=== PATIENT | male | born 1965 | race Caucasian/White ===

== ENCOUNTER → 2016-11-21 | Outpatient (CLI) | payer BC | END | disposition home or self-care (01) | LOC: C.LAB1850 07:06 | PROVIDERS: ATTEND Family Medicine | DX: Z12.5 Encounter for screening for malignant neoplasm of prostate (principal) ==

== ENCOUNTER 2022-04-12 21:11 | Observation (INO) ==
[2022-04-12] MEDS ORDERED: OPTIRAY 300 500mL IV ONE (21:30)
--- NOTE | 2022-04-12 21:55 | CT Scan Report ---
CT angio neck with con, CT head/brain wo con, CT angio head w con CLINICAL HISTORY: stroke TECHNIQUE: Contiguous axial CT images of the head were acquired from the base of the skull to the adama jason without intravenous contrast administration. CT angiography of the head and neck was performed f ollowing intravenous administration of iodinated contrast. Coronal and sagittal MIPS were obtained fr om the axial data set and were submitted for review. Automated dose lowering techniques and/or adjus tment according to patient size were utilized for this examination. All measurements were calculated based on NASCET criteria. CT DOSE: 1323.91 mGy.cm Comparison: Comparison is made to brain MRI 12/25/2021 FINDINGS: CT head: There is no acute intracranial hemorrhage or evidence of acute territorial infarction. No sh ift of the midline structures, mass effect, or extra-axial abnormalities are shown. There is biapical scarring and an azygos fissure is noted. Tiny hypodense thyroid nodule is seen. CTA Neck: A 3 vessel aortic arch is shown. There is no significant atherosclerotic plaque in the aor tic arch or the origins of the innominate, left common carotid, and left subclavian arteries. The c ommon carotid, external carotid, cervical segments of the internal carotid arteries, and the cervical segments of the vertebral arteries are patent without hemodynamically significant stenosis. The vert ebral arteries are codominant. CTA Head: The anterior and posterior cerebral circulations are patent. No hemodynamically significan t stenosis, aneurysm, dissection, or arteriovenous malformation is shown. origin of the left po sterior cerebral artery is seen. IMPRESSION: 1. No acute intracranial hemorrhage, evidence of acute territorial infarction, or other acute intrac ranial disease process. 2. No occlusion, hemodynamically significant stenosis, or dissection in the major cervical arteries. 3. No occlusion, hemodynamically significant stenosis, aneurysm, dissection, or arteriovenous malfor mation in the major intracranial arteries. Assessment of stenosis of the internal carotid arteries is based on NASCET criteria. ACT 112: Negative or not required by law. Electronically signed by: Eric Mcrae M.D. 04/12/2022 9:53 PM
[2022-04-12 21:56] LABS: iSTAT Creatinine 0.7 mg/dl (0.6-1.3); iSTAT Hemoglobin 12.2 g/dl (14.0-18.0); iSTAT Ionized Calcium 1.13 mmol/l (1.12-1.32); iSTAT Potassium 3.4 mmol/L (3.3-5.0)
[2022-04-12 22:01] LABS: Hematocrit (blood only) 36.1 % (40.1-51.0); Hemoglobin 12.1 g/dl (14.0-18.0); Mean Corpuscular Hemoglobin 27.8 pg (25.0-34.0); Mean Corpuscular Hgb Conc 33.5 g/dL (32.0-36.0); Platelet Count 184 K/uL (130-400); RDW Coefficient of Variation 12.4 % (11.5-14.5); RDW Standard Deviation 37.5 fL (36.4-46.3); Red Blood Count 4.35 M/uL (4.63-6.08); White Blood Count 7.91 K/ul (4.8-10.8)
--- NOTE | 2022-04-12 22:17 | Emergency Department Note ---
Impression & Plan Stroke-like symptoms ED Provider Note INFORMANT: Patient and ED PROVIDER(S): Piter Bonilla MD CHIEF COMPLAINT: Strokelike symptoms PLAN: Disposition: Admitted Condition: Good Outpatient prescription management: none Referral: None MEDICAL DECISION MAKING: Patient presented because of strokelike symptoms. He noted he was improving and near back to baseline but still has some very minimal residual symptoms. His episode had started about 12 hours ago. He is out of the window for IV TN K. He was made a stroke alert initially and taken emergently to CT imaging. This was negative for any acute process. I did discuss the need for further work-up in the hospital. Patient and were in agreement. Patient was hydrated and given aspirin. His ECG was unremarkable. He had a minimal anemia on CBC. Chemistry panel was unremarkable. Consultation was made with Dr. Vikas Singh of the [facility] service. Patient was evaluated in the ER for further management. Triage Nursing notes reviewed and agree them. Vital Signs: reviewed and remarkable for no significant abnormalities Differential diagnosis: CVA, TIA infection, dehydration, metabolic abnormality, hypo/hyperglycemia, electrolyte disturbance, anemia, hypoxia, cardiac sources, intracerebral event, toxicologic, neurologic, as well as other pathologies. Diagnostics interpreted by me: ECLead ECG rhythm sinus bradycardia [address] elevation or depression. No PACs or PVCs. Normal axis. Cardiac Monitoring: Cardiac monitoring ordered by me: The patient was placed on continuous cardiac monitoring and observed. It revealed a normal sinus rhythm at 60 beats per minute without ectopy or evidence of dysrhythmia. Imaging studies: And CT angiography of the head and neck are negative for acute process. HPI: The patient is a 57year old male who presents to the Emergency Room with complaints of stroke symptoms. This started around 8 AM today and is now nearly resolved. The patient also notes the following associated symptoms, feeling off balance throughout the day, right facial droop, left leg decreased sensation. states that she noticed around 8 PM this evening that his speech was slurred and his right face was drooping. Currently his speech is normal and the facial droop is still minimally present. He feels like his leg is nearly back to normal. The patient has taken no medication for relieving factors. Current pain is rated as 0/10. Patient also notes that he has been losing weight this year. No etiology was noted. Pt denies LOC, headache, fevers, chills, diaphoresis, visual changes, neck pain, chest pain, breathing difficulties, nausea, vomiting, abdominal pain, back pain, melena, hematochezia, urinary symptoms, numbness, weakness, lymphadenopathy, rash, or other complaints. ROS: See above HPI for pertinent positives & negatives. A total of 10 systems reviewed and were otherwise negative. PAST MEDICAL HISTORY:See Below , gastroparesis PAST SURGICAL HISTORY:See Below, FAMILY HISTORY:See Below SOCIAL HISTORY:See Below, HOME MEDICATIONS:See Below ALLERGIES:See Below VITALS:See Below PHYSICAL EXAMINATION: GENERAL: Awake, alert, well-appearing, in no distress HENT: Normocephalic, atraumatic. Oropharynx unremarkable. EYES: Normal conjunctiva. Sclera non-icteric. PERRLA. EOMI. NECK: Inspection normal. Non-tender. Supple. No nuchal rigidity. FROM. No masses. RESPIRATORY: Clear to auscultation. No wheezes. No rales. Normal respiratory effort. CARDIAC: Normal rate. Normal rhythm. No murmurs. No rubs. Extremities warm and well perfused. Pulses equal. No JVD. GI: Soft, non-distended. No tenderness to palpation. No rebound or guarding. No masses. RECTAL: Deferred. MUSCULOSKELETAL: Atraumatic. Chest examination reveals no tenderness. The back is symmetrical on inspection without obvious abnormality. There is no CVA tenderness to palpation. No joint edema. LOWER EXTREMITIES: Calves are equal size bilaterally and non-tender. No edema. No discoloration. NEURO: Normal sensorium. No sensory or motor deficits noted. Subtle right facial droop noted otherwise cranial nerves II through XII intact subtle weakness of the right leg with lifting off the bed, very slight. SKIN: No rash or jaundice noted. Piter Bonilla MD Past Med/Surg History Medical History Anxiety and depression BPH (benign prostatic hyperplasia) Chronic obstructive pulmonary disease History of colon polyps History of COVID-19 History of TMJ disorder Hx of Lyme disease Osteoarthritis Positive cardiac stress test Raynaud's disease Sleep apnea Surgical History H/O inguinal hernia repair History of cardiac cath History of colonoscopy History of tooth extraction S/P anal fissurectomy S/P hernia surgery Family History Father Lung cancer Mother Scleroderma Myocardial infarction Other No family history of adverse response to anesthesia Denies family history of Ovarian cancer Prostate cancer Breast cancer Colorectal cancer Social History Smoking Status: Never smoker Second Hand Exposure: Yes (as a child); Hx Alcohol Use: No Hx Substance Use: No Preferred Language: Slovak Communication Ability: Effective Visual Impairment: No Limitations Hearing Ability: Normal Passenger Service Agent Required: No Beliefs That Will Affect Care: None marital status: Current Living Situation: Family Current Living Situation Comment: , FATHER N LAW, DAUGHTERS, AND STEP SON current occupational status: employed current occupation: [employer] Feels Safe at Home: Yes Childhood Exposure to Second-Hand Smoke: Yes Dental Care, Regularly: Yes Physical Activity Frequency: 1-2 Times per Week Seatbelt Use: always Sunscreen Use: Yes Assistive Devices: Glasses Allergies Allergies Allergy/AdvReac Type Severity Reaction Status Date / Time oxycodone [From Percocet] Allergy Intermediate ITCHING Verified 01/30/22 17:59 Home Meds Home Medications Medication Instructions Recorded Confirmed cholecalciferol (vitamin D3) 25 4,000 unit PO DAILY 10/31/21 04/12/22 mcg (1,000 unit) capsule Previous Rx's Medication Instructions Recorded sildenafil 100 mg tablet (Viagra) See Rx Instructions PO DAILY PRN 12/04/20 sexual activity #30 tabs fluvoxamine 100 mg tablet 100 mg PO HS #90 tabs 12/26/21 pantoprazole 40 mg tablet,delayed 40 mg PO DAILY #30 tabs 02/21/22 release (Protonix) Results & Data (ED) Vital Signs Vital Signs - 24 hr 04/12/22 21:14 04/12/22 21:36 04/12/22 21:38 Temperature 36.2 C L 37.1 C Temperature Source Temporal Artery Scan Oral Pulse Rate 61 Pulse Rate [Apical] Pulse Rate [Finger] 61 Pulse Rate from SpO2 Sensor Pulse Rhythm Pulse Rhythm [Apical] Pulse Strength [Apical] Respiratory Rate 18 18 Respiratory Effort / Characteristics Non-Labored Spontaneous Non-Labored Spontaneous Respiratory Depth Normal Normal Respiratory Pattern Blood Pressure 154/88 H Blood Pressure [Right Arm] 148/99 H Blood Pressure Mean 110 Blood Pressure Mean [Right Arm] 115 Blood Pressure Position [Right Arm] Lying Pulse Oximetry 98 97 100 Oxygen Delivery Method Room Air Room Air Room Air Oxygen Flow Rate 0 Sepsis Recent Fever Within 48 Hours No Sepsis New/Unexplained Change in Mental Status No Sepsis Action Taken by Nursing No Action Required 04/12/22 21:43 04/12/22 23:00 04/12/22 21:35 Temperature Temperature Source Pulse Rate 57 L 60 Pulse Rate [Apical] 54 L Pulse Rate [Finger] Pulse Rate from SpO2 Sensor Pulse Rhythm Regular Pulse Rhythm [Apical] Regular Pulse Strength [Apical] Normal Respiratory Rate 15 16 9 L Respiratory Effort / Characteristics Non-Labored Respiratory Depth Normal Respiratory Pattern Regular Blood Pressure Blood Pressure [Right Arm] 145/87 H Blood Pressure Mean Blood Pressure Mean [Right Arm] 106 Blood Pressure Position [Right Arm] Lying Pulse Oximetry 98 96 Oxygen Delivery Method Room Air Room Air Oxygen Flow Rate Sepsis Recent Fever Within 48 Hours Sepsis New/Unexplained Change in Mental Status Sepsis Action Taken by Nursing 04/12/22 21:38 04/12/22 21:38 04/12/22 21:40 Temperature Temperature Source Pulse Rate 62 63 Pulse Rate [Apical] Pulse Rate [Finger] Pulse Rate from SpO2 Sensor 62 64 Pulse Rhythm Pulse Rhythm [Apical] Pulse Strength [Apical] Respiratory Rate 12 20 Respiratory Effort / Characteristics Respiratory Depth Respiratory Pattern Blood Pressure 148/99 H Blood Pressure [Right Arm] Blood Pressure Mean 115 Blood Pressure Mean [Right Arm] Blood Pressure Position [Right Arm] Pulse Oximetry 100 98 Oxygen Delivery Method Oxygen Flow Rate Sepsis Recent Fever Within 48 Hours Sepsis New/Unexplained Change in Mental Status Sepsis Action Taken by Nursing 04/12/22 21:50 04/12/22 22:00 04/12/22 22:00 Temperature Temperature Source Pulse Rate 61 56 L Pulse Rate [Apical] Pulse Rate [Finger] Pulse Rate from SpO2 Sensor 63 55 L Pulse Rhythm Pulse Rhythm [Apical] Pulse Strength [Apical] Respiratory Rate 15 11 L Respiratory Effort / Characteristics Respiratory Depth Respiratory Pattern Blood Pressure 138/96 Blood Pressure [Right Arm] Blood Pressure Mean 110 Blood Pressure Mean [Right Arm] Blood Pressure Position [Right Arm] Pulse Oximetry 98 97 Oxygen Delivery Method Oxygen Flow Rate Sepsis Recent Fever Within 48 Hours Sepsis New/Unexplained Change in Mental Status Sepsis Action Taken by Nursing 04/12/22 22:10 04/12/22 22:20 04/12/22 22:30 Temperature Temperature Source Pulse Rate 57 L 54 L Pulse Rate [Apical] Pulse Rate [Finger] Pulse Rate from SpO2 Sensor 59 L 55 L Pulse Rhythm Pulse Rhythm [Apical] Pulse Strength [Apical] Respiratory Rate 18 20 Respiratory Effort / Characteristics Respiratory Depth Respiratory Pattern Blood Pressure 139/80 Blood Pressure [Right Arm] Blood Pressure Mean 99 Blood Pressure Mean [Right Arm] Blood Pressure Position [Right Arm] Pulse Oximetry 97 97 Oxygen Delivery Method Oxygen Flow Rate Sepsis Recent Fever Within 48 Hours Sepsis New/Unexplained Change in Mental Status Sepsis Action Taken by Nursing 04/12/22 22:30 04/12/22 22:40 04/12/22 22:50 Temperature Temperature Source Pulse Rate 58 L 56 L 55 L Pulse Rate [Apical] Pulse Rate [Finger] Pulse Rate from SpO2 Sensor 56 L 56 L 56 L Pulse Rhythm Pulse Rhythm [Apical] Pulse Strength [Apical] Respiratory Rate 14 21 20 Respiratory Effort / Characteristics Respiratory Depth Respiratory Pattern Blood Pressure Blood Pressure [Right Arm] Blood Pressure Mean Blood Pressure Mean [Right Arm] Blood Pressure Position [Right Arm] Pulse Oximetry 97 96 97 Oxygen Delivery Method Oxygen Flow Rate Sepsis Recent Fever Within 48 Hours Sepsis New/Unexplained Change in Mental Status Sepsis Action Taken by Nursing 04/12/22 23:00 04/12/22 23:00 04/12/22 23:10 Temperature Temperature Source Pulse Rate 56 L 56 L Pulse Rate [Apical] Pulse Rate [Finger] Pulse Rate from SpO2 Sensor 56 L 55 L Pulse Rhythm Pulse Rhythm [Apical] Pulse Strength [Apical] Respiratory Rate 18 24 Respiratory Effort / Characteristics Respiratory Depth Respiratory Pattern Blood Pressure 145/87 H Blood Pressure [Right Arm] Blood Pressure Mean 106 Blood Pressure Mean [Right Arm] Blood Pressure Position [Right Arm] Pulse Oximetry 97 97 Oxygen Delivery Method Oxygen Flow Rate Sepsis Recent Fever Within 48 Hours Sepsis New/Unexplained Change in Mental Status Sepsis Action Taken by Nursing 04/12/22 23:20 04/12/22 23:30 04/12/22 23:30 Temperature Temperature Source Pulse Rate 56 L 55 L Pulse Rate [Apical] Pulse Rate [Finger] Pulse Rate from SpO2 Sensor 55 L 54 L Pulse Rhythm Pulse Rhythm [Apical] Pulse Strength [Apical] Respiratory Rate 17 18 Respiratory Effort / Characteristics Respiratory Depth Respiratory Pattern Blood Pressure 149/89 H Blood Pressure [Right Arm] Blood Pressure Mean 109 Blood Pressure Mean [Right Arm] Blood Pressure Position [Right Arm] Pulse Oximetry 99 97 Oxygen Delivery Method Oxygen Flow Rate Sepsis Recent Fever Within 48 Hours Sepsis New/Unexplained Change in Mental Status Sepsis Action Taken by Nursing 04/12/22 23:40 04/13/22 00:01 04/13/22 00:01 Temperature Temperature Source Pulse Rate 54 L 55 L Pulse Rate [Apical] Pulse Rate [Finger] Pulse Rate from SpO2 Sensor 55 L 54 L Pulse Rhythm Pulse Rhythm [Apical] Pulse Strength [Apical] Respiratory Rate 20 14 Respiratory Effort / Characteristics Respiratory Depth Respiratory Pattern Blood Pressure 140/84 Blood Pressure [Right Arm] Blood Pressure Mean 102 Blood Pressure Mean [Right Arm] Blood Pressure Position [Right Arm] Pulse Oximetry 98 99 Oxygen Delivery Method Oxygen Flow Rate Sepsis Recent Fever Within 48 Hours Sepsis New/Unexplained Change in Mental Status Sepsis Action Taken by Nursing 04/13/22 00:10 04/13/22 00:20 04/13/22 00:30 Temperature Temperature Source Pulse Rate 50 L 53 L Pulse Rate [Apical] Pulse Rate [Finger] Pulse Rate from SpO2 Sensor 51 L 53 L Pulse Rhythm Pulse Rhythm [Apical] Pulse Strength [Apical] Respiratory Rate 17 17 Respiratory Effort / Characteristics Respiratory Depth Respiratory Pattern Blood Pressure 131/87 Blood Pressure [Right Arm] Blood Pressure Mean 101 Blood Pressure Mean [Right Arm] Blood Pressure Position [Right Arm] Pulse Oximetry 97 97 Oxygen Delivery Method Oxygen Flow Rate Sepsis Recent Fever Within 48 Hours Sepsis New/Unexplained Change in Mental Status Sepsis Action Taken by Nursing 04/13/22 00:30 Temperature Temperature Source Pulse Rate 53 L Pulse Rate [Apical] Pulse Rate [Finger] Pulse Rate from SpO2 Sensor 55 L Pulse Rhythm Pulse Rhythm [Apical] Pulse Strength [Apical] Respiratory Rate 16 Respiratory Effort / Characteristics Respiratory Depth Respiratory Pattern Blood Pressure Blood Pressure [Right Arm] Blood Pressure Mean Blood Pressure Mean [Right Arm] Blood Pressure Position [Right Arm] Pulse Oximetry 98 Oxygen Delivery Method Oxygen Flow Rate Sepsis Recent Fever Within 48 Hours Sepsis New/Unexplained Change in Mental Status Sepsis Action Taken by Nursing Laboratory Data Result diagrams: 04/12/22 21:33 04/12/22 21:33 Lab Results 04/12/22 04/12/22 04/12/22 Range/Units 21:33 21:33 21:33 WBC 7.91 (4.8-10.8) K/ul RBC 4.35 L (4.63-6.08) M/uL Hgb 12.1 L (14.0-18.0) g/dl POC Hgb (14.0-18.0) g/dl Hct 36.1 L (40.1-51.0) % POC Hct (42-52) % MCV 83.0 (80.0-100.0) fL MCH 27.8 (25.0-34.0) pg MCHC 33.5 (32.0-36.0) g/dL RDW Std Deviation 37.5 (36.4-46.3) fL RDW Coeff of Marie 12.4 (11.5-14.5) % Plt Count 184 (130-400) K/uL MPV 10.0 (9.4-12.4) fL PT 12.1 H (9.0-12.0) Seconds INR 1.1 (0.9-1.1) APTT 29.3 (21.0-31.0) Seconds PTT Ratio 1.1 POC Sodium (135-144) mmol/L Sodium 136 (136-145) mmol/L POC Potassium (3.3-5.0) mmol/L Potassium 3.5 (3.5-5.1) mmol/L POC Chloride (101-112) mmol/L Chloride 105 (98-107) mmol/L Carbon Dioxide 27 (21-32) mmol/L POC Total CO2 (24-31) mmol/L Anion Gap 4 (3-11) POC Anion Gap (16-25) mmol/L POC BUN (7-18) mg/dl BUN 14 (6-23) mg/dl Creatinine 0.70 (0.6-1.4) mg/dl POC Creatinine (0.6-1.3) mg/dl Est Cr Clr Drug Dosing 120.2 ml/min Est GFR ( Amer) 121.4 ml/min Est GFR (Non-Af Amer) 104.8 ml/min BUN/Creatinine Ratio 20.0 (10-20) Glucose 112 H (70-99(Fasting)) mg/dl POC Glucose (70-99) mg/dl POC Glucose (other) (70-99) mg/dl Calcium 7.9 L (8.5-10.1) mg/dl POC Ioniz Calcium Chago (1.12-1.32) mmol/l Magnesium 1.9 (1.7-2.4) mg/dl Total Bilirubin 0.4 (0.2-1.0) mg/dl AST 12 L (13-39) U/L ALT 10 (7-52) U/L Alkaline Phosphatase 49 (34-104) U/L Troponin I High Sens 3.3 (0-20) pg/ml Total Protein 5.5 L (6.0-8.3) gm/dl Albumin 3.7 (3.4-5.0) gm/dl Globulin 1.8 L (2.5-4.0) gm/dl Albumin/Globulin Ratio 2.1 H (0.9-2) Anaplasma Smear Babesia Smear Lyme Disease IgG Ab (Negative) Lyme Disease IgM Ab (Negative) SARS-CoV-2, RNA, NAAT (NEGATIVE) 04/12/22 04/12/22 04/12/22 Range/Units 21:33 21:33 21:35 WBC (4.8-10.8) K/ul RBC (4.63-6.08) M/uL Hgb (14.0-18.0) g/dl POC Hgb (14.0-18.0) g/dl Hct (40.1-51.0) % POC Hct (42-52) % MCV (80.0-100.0) fL MCH (25.0-34.0) pg MCHC (32.0-36.0) g/dL RDW Std Deviation (36.4-46.3) fL RDW Coeff of Marie (11.5-14.5) % Plt Count (130-400) K/uL MPV (9.4-12.4) fL PT (9.0-12.0) Seconds INR (0.9-1.1) APTT (21.0-31.0) Seconds PTT Ratio POC Sodium (135-144) mmol/L Sodium (136-145) mmol/L POC Potassium (3.3-5.0) mmol/L Potassium (3.5-5.1) mmol/L POC Chloride (101-112) mmol/L Chloride (98-107) mmol/L Carbon Dioxide (21-32) mmol/L POC Total CO2 (24-31) mmol/L Anion Gap (3-11) POC Anion Gap (16-25) mmol/L POC BUN (7-18) mg/dl BUN (6-23) mg/dl Creatinine (0.6-1.4) mg/dl POC Creatinine (0.6-1.3) mg/dl Est Cr Clr Drug Dosing ml/min Est GFR ( Amer) ml/min Est GFR (Non-Af Amer) ml/min BUN/Creatinine Ratio (10-20) Glucose (70-99(Fasting)) mg/dl POC Glucose 62 L* (70-99) mg/dl POC Glucose (other) (70-99) mg/dl Calcium (8.5-10.1) mg/dl POC Ioniz Calcium Chago (1.12-1.32) mmol/l Magnesium (1.7-2.4) mg/dl Total Bilirubin (0.2-1.0) mg/dl AST (13-39) U/L ALT (7-52) U/L Alkaline Phosphatase (34-104) U/L Troponin I High Sens (0-20) pg/ml Total Protein (6.0-8.3) gm/dl Albumin (3.4-5.0) gm/dl Globulin (2.5-4.0) gm/dl Albumin/Globulin Ratio (0.9-2) Anaplasma Smear See Comment Babesia Smear See Comment Lyme Disease IgG Ab Negative (Negative) Lyme Disease IgM Ab Negative (Negative) SARS-CoV-2, RNA, NAAT (NEGATIVE) 04/12/22 04/12/22 Range/Units 21:44 21:59 WBC (4.8-10.8) K/ul RBC (4.63-6.08) M/uL Hgb (14.0-18.0) g/dl POC Hgb 12.2 L (14.0-18.0) g/dl Hct (40.1-51.0) % POC Hct 36 L (42-52) % MCV (80.0-100.0) fL MCH (25.0-34.0) pg MCHC (32.0-36.0) g/dL RDW Std Deviation (36.4-46.3) fL RDW Coeff of Marie (11.5-14.5) % Plt Count (130-400) K/uL MPV (9.4-12.4) fL PT (9.0-12.0) Seconds INR (0.9-1.1) APTT (21.0-31.0) Seconds PTT Ratio POC Sodium 139 (135-144) mmol/L Sodium (136-145) mmol/L POC Potassium 3.4 (3.3-5.0) mmol/L Potassium (3.5-5.1) mmol/L POC Chloride 101 (101-112) mmol/L Chloride (98-107) mmol/L Carbon Dioxide (21-32) mmol/L POC Total CO2 26 (24-31) mmol/L Anion Gap (3-11) POC Anion Gap 16.0 (16-25) mmol/L POC BUN 14 (7-18) mg/dl BUN (6-23) mg/dl Creatinine (0.6-1.4) mg/dl POC Creatinine 0.7 (0.6-1.3) mg/dl Est Cr Clr Drug Dosing ml/min Est GFR ( Amer) ml/min Est GFR (Non-Af Amer) ml/min BUN/Creatinine Ratio (10-20) Glucose (70-99(Fasting)) mg/dl POC Glucose (70-99) mg/dl POC Glucose (other) 116 H (70-99) mg/dl Calcium (8.5-10.1) mg/dl POC Ioniz Calcium Chago 1.13 (1.12-1.32) mmol/l Magnesium (1.7-2.4) mg/dl Total Bilirubin (0.2-1.0) mg/dl AST (13-39) U/L ALT (7-52) U/L Alkaline Phosphatase (34-104) U/L Troponin I High Sens (0-20) pg/ml Total Protein (6.0-8.3) gm/dl Albumin (3.4-5.0) gm/dl Globulin (2.5-4.0) gm/dl Albumin/Globulin Ratio (0.9-2) Anaplasma Smear Babesia Smear Lyme Disease IgG Ab (Negative) Lyme Disease IgM Ab (Negative) SARS-CoV-2, RNA, NAAT NEGATIVE (NEGATIVE) Administered Medications Potassium Chloride/Sodium Chloride (Normal Saline W/20 Meq Kcl) 20 meq in 1,000 mls @ 100 mls/hr IV .Q10H DOMONIQUE; Protocol Stop: 05/13/22 00:00 Last Admin: 04/13/22 00:30 Dose: 100 mls/hr Documented By: IRA Discontinued Medications Aspirin (Aspirin Chew 324 Mg) 324 mg PO NOW STA Stop: 04/12/22 22:44 Last Admin: 04/12/22 23:16 Dose: 324 mg Documented By: IRA Ioversol (Optiray 300 500ml) 120 ml IV ONCE ONE Stop: 04/12/22 21:31 Last Admin: 04/12/22 21:31 Dose: 120 ml Documented By: P Imaging Data Radiologist's Impression: Head CTA 04/12/22 21:22 CT angio neck with con, CT head/brain wo con, CT angio head w con CLINICAL HISTORY: stroke TECHNIQUE: Contiguous axial CT images of the head were acquired from the base of the skull to the vertex without intravenous contrast administration. CT angiography of the head and neck was performed following intravenous administration of iodinated contrast. Coronal and sagittal MIPS were obtained from the axial data set and were submitted for review. Automated dose lowering techniques and/or adjustment according to patient size were utilized for this examination. All measurements were calculated based on NASCET criteria. CT DOSE: 1323.91 mGy.cm Comparison: Comparison is made to brain MRI 12/25/2021 FINDINGS: CT head: There is no acute intracranial hemorrhage or evidence of acute territorial infarction. No shift of the midline structures, mass effect, or extra-axial abnormalities are shown. There is biapical scarring and an azygos fissure is noted. Tiny hypodense thyroid nodule is seen. CTA Neck: A 3 vessel aortic arch is shown. There is no significant atherosclerotic plaque in the aortic arch or the origins of the innominate, left common carotid, and left subclavian arteries. The common carotid, external carotid, cervical segments of the internal carotid arteries, and the cervical segments of the vertebral arteries are patent without hemodynamically significant stenosis. The vertebral arteries are codominant. CTA Head: The anterior and posterior cerebral circulations are patent. No hemodynamically significant stenosis, aneurysm, dissection, or arteriovenous malformation is shown. origin of the left posterior cerebral artery is seen. IMPRESSION: 1. No acute intracranial hemorrhage, evidence of acute territorial infarction, or other acute intracranial disease process. 2. No occlusion, hemodynamically significant stenosis, or dissection in the major cervical arteries. 3. No occlusion, hemodynamically significant stenosis, aneurysm, dissection, or arteriovenous malformation in the major intracranial arteries. Assessment of stenosis of the internal carotid arteries is based on NASCET criteria. ACT 112: Negative or not required by law. Electronically signed by: Eric Mcrae M.D. 04/12/2022 9:53 PM Neck CTA 04/12/22 21:22 CT angio neck with con, CT head/brain wo con, CT angio head w con CLINICAL HISTORY: stroke TECHNIQUE: Contiguous axial CT images of the head were acquired from the base of the skull to the vertex without intravenous contrast administration. CT angiography of the head and neck was performed following intravenous adm inistration of iodinated contrast. Coronal and sagittal MIPS were obtained from the axial data set and were submitted for review. Automated dose lowering techniques and/or adjustment according to patient size were utilized for this examination. All measurements were calculated based on NASCET criteria. CT DOSE: 1323.91 mGy.cm Comparison: Comparison is made to brain MRI 12/25/2021 FINDINGS: CT head: There is no acute intracranial hemorrhage or evidence of acute territorial infarction. No shift of the midline structures, mass effect, or extra-axial abnormalities are shown. There is biapical scarring and an azygos fissure is noted. Tiny hypodense thyroid nodule is seen. CTA Neck: A 3 vessel aortic arch is shown. There is no significant atherosclerotic plaque in the aortic arch or the origins of the innominate, left common carotid, and left subclavian arteries. The common carotid, external carotid, cervical segments of the internal carotid arteries, and the cervical segments of the vertebral arteries are patent without hemodynamically significant stenosis. The vertebral arteries are codominant. CTA Head: The anterior and posterior cerebral circulations are patent. No hemodynamically significant stenosis, aneurysm, dissection, or arteriovenous malformation is shown. origin of the left posterior cerebral artery is seen. IMPRESSION: 1. No acute intracranial hemorrhage, evidence of acute territorial infarction, or other acute intracranial disease process. 2. No occlusion, hemodynamically significant stenosis, or dissection in the major cervical arteries. 3. No occlusion, hemodynamically significant stenosis, aneurysm, dissection, or arteriovenous malformation in the major intracranial arteries. Assessment of stenosis of the internal carotid arteries is based on NASCET criteria. ACT 112: Negative or not required by law. Electronically signed by: Eric Mcrae M.D. 04/12/2022 9:[address] 04/12/22 21:25 CT angio neck with con, CT head/brain wo con, CT angio head w con CLINICAL HISTORY: stroke TECHNIQUE: Contiguous axial CT images of the head were acquired from the base of the skull to the vertex without intravenous contrast administration. CT angiography of the head and neck was performed following intravenous administration of iodinated contrast. Coronal and sagittal MIPS were obtained from the axial data set and were submitted for review. Automated dose lowering techniques and/or adjustment according to patient size were utilized for this examination. All measurements were calculated based on NASCET criteria. CT DOSE: 1323.91 mGy.cm Comparison: Comparison is made to brain MRI 12/25/2021 FINDINGS: CT head: There is no acute intracranial hemorrhage or evidence of acute territorial infarction. No shift of the midline structures, mass effect, or extra-axial abnormalities are shown. There is biapical scarring and an azygos fissure is noted. Tiny hypodense thyroid nodule is seen. CTA Neck: A 3 vessel aortic arch is shown. There is no significant atherosclerotic plaque in the aortic arch or the origins of the innominate, left common carotid, and left subclavian arteries. The common carotid, external carotid, cervical segments of the internal carotid arteries, and the cervical segments of the vertebral arteries are patent without hemodynamically significant stenosis. The vertebral arteries are codominant. CTA Head: The anterior and posterior cerebral circulations are patent. No hemodynamically significant stenosis, aneurysm, dissection, or arteriovenous malformation is shown. origin of the left posterior cerebral artery is seen. IMPRESSION: 1. No acute intracranial hemorrhage, evidence of acute territorial infarction, or other acute intracranial disease process. 2. No occlusion, hemodynamically significant stenosis, or dissection in the major cervical arteries. 3. No occlusion, hemodynamically significant stenosis, aneurysm, dissection, or arteriovenous malformation in the major intracranial arteries. Assessment of stenosis of the internal carotid arteries is based on NASCET criteria. ACT 112: Negative or not required by law. Electronically signed by: Eric Mcrae M.D. 04/12/2022 9:53 PM Discharge Plan Visit Data Chief Complaint: Stroke/CVA Symptoms Stated Complaint: SLURRED SPEECH, DROOPING IN FACE ED Provider: Piter Bonilla Discharge Problem: Stroke-like symptoms Forms Stand Alone Forms: [facility] Prescriptions Prescriptions: No Action sildenafil [Viagra] 100 mg tablet See Rx Instructions PO DAILY PRN (Reason: sexual activity) Qty: 30 5RF Dose Instruction: 1/2 to 1 tablet PO DAILY PRN; administer 30 minutes to 4 hours before activity Rx Instructions: 1/2 to 1 tablet PO DAILY PRN; administer 30 minutes to 4 hours before activity cholecalciferol (vitamin D3) 25 mcg (1,000 unit) capsule 4,000 unit PO DAILY fluvoxamine 100 mg tablet 100 mg PO HS Qty: 90 1RF pantoprazole [Protonix] 40 mg tablet,delayed release (DR/EC) 40 mg PO DAILY Qty: 30 2RF Referrals Referrals: Isi Paiz MD [Primary Care Provider] -
[2022-04-12 22:23] LABS: INR 1.1 (0.9-1.1); Partial Thromboplastin Ratio 1.1; Partial Thromboplastin Time 29.3 Seconds (21.0-31.0); Prothrombin Time 12.1 Seconds (9.0-12.0)
[2022-04-12] MEDS ORDERED: SODIUM CHLORIDE 0.9% 1000ML 1,000 ML IV STA (22:43)
[2022-04-12] MEDS ORDERED: ASPIRIN CHEW 324 MG PO STA (22:43)
[2022-04-12 22:44] LABS: Albumin Globulin Ratio 2.1 (0.9-2); Albumin Level 3.7 gm/dl (3.4-5.0); Bilirubin,Total 0.4 mg/dl (0.2-1.0); Calcium 7.9 mg/dl (8.5-10.1); Creatinine Clr Calc Pharmacy 120.2 ml/min; Est GFR (African American) 121.4 ml/min; Est GFR (Non-African American) 104.8 ml/min; Globulin 1.8 gm/dl (2.5-4.0); Magnesium 1.9 mg/dl (1.7-2.4); Potassium 3.5 mmol/L (3.5-5.1); Total Protein 5.5 gm/dl (6.0-8.3)
--- NOTE | 2022-04-12 23:20 | History & Physical Report ---
Date of Service April 12, 2022 Assessment & Plan (1) Weakness: Plan: The patient presents to the emergency department with with symptoms of the been intermittent over the past weeks, with possible mild acute worsening today. He has had a 35 pound weight loss since May 2021. He has undergone multiple assessments at [facility] rheumatologic center due to his symptom complex being most consistent with some form of connective tissue disease/autoimmune disease, and there was concern that he may be approaching a similar process that his mother had with scleroderma. Patient does have a history of gastroparesis, and has had significant issues with oral intake to liquids and solids during this time, likely contributing to his significant weight loss. I suspect his symptoms today are more related to a metabolic process as opposed to a TIA type process. There are concerns related to possible tickborne illness. He has a history of Lyme disease in the past. He has had a declining hemoglobin, and therefore testing related to babesiosis, anaplasmosis, early ketosis and Lyme disease are being undertaken In relation to his underlying family history of autoimmune disease, and some of his vague symptomatology, we will do arterial hypercoagulable work-up including the following: Cardiolipin antibody, lupus anticoagulant, homocystine, and beta- 2 microglobulin. He has undergone a cardiac catheterization in July of this year due to a str ess echocardiogram which showed possible endorgan ischemia toward recovery, level, cardiac catheterization reportedly was normal. Will order an echocardiogram to assess for possible endocarditis Admit to monitored bed overnight Order an MRI of the brain to assess for possible underlying neurologic disease such as MS (2) Gastroparesis: Plan: Continue pantoprazole (3) Unintentional weight loss: (4) Raynaud's disease: (5) Depression: Plan: Continue fluvoxamine (6) Mild obstructive sleep apnea: Plan: If requires, will use CPAP at nighttime, though does not use this at home. History of Present Illness Chief Complaint: The patient presented to the emergency department with variable symptoms of fatigue, variable symptoms of abnormal sensations in the legs, as noted by his and the patient, he reports an unintentional 35 pound weight loss since May 2021 Primary Care Provider: Isi Paiz MD The patient is a 57-year-old male with a past medical history including gastroparesis, weakness, Raynaud's disease, depression, mild JONO, weight loss, GERD and ongoing assessment for connective tissue disease due to mother's history of scleroderma. The patient presents with essentially resolved symptoms as noted above. He had decreased oral intake over the past several months, and has been assessed at [facility] in [place], [facility] locally, and [facility] outpatient services. He has had a 35 pound weight loss unintentionally, since May 2021. The primary concern has been that of connective tissue disease evaluation, due to his family history of his mother having scleroderma, and he has met some of the criteria for this and other autoimmune diseases. Work-up in the emergency department this evening included a CT scan of head, and CTA of head and neck, all of which were negative. Allergies Allergy/AdvReac Type Severity Reaction Status Date / Time oxycodone [From Percocet] Allergy Intermediate ITCHING Verified 01/30/22 17:59 Home Medications Medication Instructions Recorded Confirmed Type sildenafil 100 mg tablet (Viagra) See Rx Instructions PO DAILY PRN 12/04/20 04/12/22 Rx sexual activity #30 tabs cholecalciferol (vitamin D3) 25 4,000 unit PO DAILY 10/31/21 04/12/22 History mcg (1,000 unit) capsule fluvoxamine 100 mg tablet 100 mg PO HS #90 tabs 12/26/21 04/12/22 Rx pantoprazole 40 mg tablet,delayed 40 mg PO DAILY #30 tabs 02/21/22 04/12/22 Rx release (Protonix) Past Med/Surg History Medical History Anxiety and depression BPH (benign prostatic hyperplasia) Chronic obstructive pulmonary disease History of colon polyps History of COVID-19 History of TMJ disorder Hx of Lyme disease Osteoarthritis Positive cardiac stress test Raynaud's disease Sleep apnea Surgical History H/O inguinal hernia repair History of cardiac cath History of colonoscopy History of tooth extraction S/P anal fissurectomy S/P hernia surgery Family History Father Lung cancer Mother Scleroderma Myocardial infarction Other No family history of adverse response to anesthesia Denies family history of Ovarian cancer Prostate cancer Breast cancer Colorectal cancer Social History Smoking Status: Never smoker Second Hand Exposure: Yes (as a child); Hx Alcohol Use: No Hx Substance Use: No Preferred Language: Occitan Communication Ability: Effective Visual Impairment: No Limitations Hearing Ability: Normal 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 Beliefs That Will Affect Care: None marital status: Current Living Situation: Family Current Living Situation Comment: , FATHER N LAW, DAUGHTERS, AND STEP SON current occupational status: employed current occupation: [employer] Feels Safe at Home: Yes Childhood Exposure to Second-Hand Smoke: Yes Dental Care, Regularly: Yes Physical Activity Frequency: 1-2 Times per Week Seatbelt Use: always Sunscreen Use: Yes Assistive Devices: Glasses Review of Systems Review of Systems: The patient denies chest pain, palpitations, shortness of breath, dyspnea on exertion, cough, lower extremity swelling, sore throat, fevers, chills, sweats, nausea, vomiting, diarrhea , constipation, abdominal pain, pelvic pain, blood in urine or stool, dysuria, urinary frequency or urgency, lightheadedness, dizziness, headache, memory loss, loss of consciousness, rash, abnormal bruising or bleeding, imbalance, generalized arthralgias or myalgias, back or neck pain, or night sweats. The review of systems is otherwise negative other than for that already noted above, and at least 10 systems have been reviewed. Physical Exam Physical Exam: The patient is awake, alert and oriented 3, well developed and well nourished, normocephalic and atraumatic, lying in bed and in no acute distress. HEENT--PERRL, EOMI, mucous membranes and oropharynx dry. Neck--supple. No JVD. No bruits. Thyroid normal, trachea midline, no adenopathy. Heart--normal S1 and S2. No murmurs, rubs or gallops. Lungs--clear bilaterally, no respiratory distress, no accessory muscle use. Abdomen--normal bowel sounds and soft. Nontender. Nondistended, no hernias or ma sses, no organomegaly. Extremities--no cyanosis or clubbing. No edema. There are good distal pulses b/l. Dermatologic--normal skin turgor, normal color, no abnormal lymph nodes, no rash. Neurologic--cranial nerves II through XII grossly intact. Rheumatologic--normal range of motion. Psychiatric--normal affect. Results & Data Results & Data ([facility]) Vital Signs (Past 12 Hours) Vital Signs Temp Pulse Pulse Resp BP BP Pulse Ox 04/12/22 21:43 57 L 15 98 04/12/22 21:38 100 04/12/22 21:36 37.1 C 61 18 148/99 H 97 04/12/22 21:14 36.2 C L 61 18 154/88 H 98 O2 Del Method O2 Flow Rate 04/12/22 21:43 Room Air 04/12/22 21:38 Room Air 0 04/12/22 21:36 Room Air 04/12/22 21:14 Room Air Laboratory Results Laboratory Results WBC 7.91 K/ul (4.8-10.8) 04/12/22 21:33 RBC 4.35 M/uL (4.63-6.08) L 04/12/22 21:33 Hgb 12.1 g/dl (14.0-18.0) L 04/12/22 21:33 POC Hgb 12.2 g/dl (14.0-18.0) L 04/12/22 21:44 Hct 36.1 % (40.1-51.0) L 04/12/22 21:33 POC Hct 36 % (42-52) L 04/12/22 21:44 MCV 83.0 fL (80.0-100.0) 04/12/22 21:33 MCH 27.8 pg (25.0-34.0) 04/12/22 21: MCHC 33.5 g/dL (32.0-36.0) 04/12/22 21:33 RDW Std Deviation 37.5 fL (36.4-46.3) 04/12/22 21:33 RDW Coeff of Marie 12.4 % (11.5-14.5) 04/12/22: Plt Count 184 K/uL (130-400) 04/12/22 21:33 MPV 10.0 fL (9.4-12.4) 04/12/22 21:33 PT 12.1 Seconds (9.0-12.0) H 04/12/22 21:33 INR 1.1 (0.9-1.1) 04/12/22 21:33 APTT 29.3 Seconds (21.0-31.0) 04/12/22 21:33 PTT Ratio 1.1 04/12/22 21:33 POC Sodium 139 mmol/L (135-144) 04/12/22 21:44 Sodium 136 mmol/L (136-145) 04/12/22 21:33 POC Potassium 3.4 mmol/L (3.3-5.0) 04/12/22 21:44 Potassium 3.5 mmol/L (3.5-5.1) 04/12/22 21:33 POC Chloride 101 mmol/L (101-112) 04/12/22:44 Chloride 105 mmol/L (98-107) 04/12/22 21:33 Carbon Dioxide 27 mmol/L (21-32) 04/12/22 21:33 POC Total CO2 26 mmol/L (24-31) 04/12/22 21:44 Anion Gap 4 (3-11) 04/12/22:33 POC Anion Gap 16.0 mmol/L (16-25) 04/12/22 21:44 POC BUN 14 mg/dl (7-18) 04/12/22 21:44 BUN 14 mg/dl (6-23) 04/12/22 21:33 Creatinine 0.70 mg/dl (0.6-1.4) 04/12/22 21:33 POC Creatinine 0.7 mg/dl (0.6-1.3) 04/12/22 21:44 Est Cr Clr Drug Dosing 120.2 ml/min 04/12/22 21:33 Est GFR ( Amer) 121.4 ml/min 04/12/22 21:33 Est GFR (Non-Af Amer) 104.8 ml/min 04/12/22 21:33 BUN/Creatinine Ratio 20.0 (10-20) 04/12/22 21:33 Glucose 112 mg/dl (70-99(Fasting)) H 04/12/22 21:33 POC Glucose 62 mg/dl (70-99) L* 04/12/22 21:35 POC Glucose (other) 116 mg/dl (70-99) H 04/12/22 21:44 Calcium 7.9 mg/dl (8.5-10.1) L 04/12/22 21:33 POC Ioniz Calcium Chago 1.13 mmol/l (1.12-1.32) 04/12/22 21:44 Magnesium 1.9 mg/dl (1.7-2.4) 04/12/22 21:33 Total Bilirubin 0.4 mg/dl (0.2-1.0) 04/12/22 21:33 AST 12 U/L (13-39) L 04/12/22 21:33 ALT 10 U/L (7-52) 04/12/22 21:33 Alkaline Phosphatase 49 U/L (34-104) 04/12/22 21:33 Troponin I High Sens 3.3 pg/ml (0-20) 04/12/22 21:33 Total Protein 5.5 gm/dl (6.0-8.3) L 04/12/22 21:33 Albumin 3.7 gm/dl (3.4-5.0) 04/12/22 21:33 Globulin 1.8 gm/dl (2.5-4.0) L 04/12/22 21:33 Albumin/Globulin Ratio 2.1 (0.9-2) H 04/12/22 21:33 Anaplasma Smear See Comment 04/12/22 21:33 Babesia Smear See Comment 04/12/22 21:33 Lyme Disease IgG Ab Negative (Negative) 04/12/22 21:33 Lyme Disease IgM Ab Negative (Negative) 04/12/22 21:33 SARS-CoV-2, RNA, NAAT NEGATIVE (NEGATIVE) 04/12/22 21:59 Impressions Head CTA 04/12/22 21:22 CT angio neck with con, CT head/brain wo con, CT angio head w con CLINICAL HISTORY: stroke TECHNIQUE: Contiguous axial CT images of the head were acquired from the base of the skull to the vertex without intravenous contrast administration. CT angiography of the head and neck was performed following intravenous administration of iodinated contrast. Coronal and sagittal MIPS were obtained from the axial data set and were submitted for review. Automated dose lowering techniques and/or adjustment according to patient size were utilized for this examination. All measurements were calculated based on NASCET criteria. CT DOSE: 1323.91 mGy.cm Comparison: Comparison is made to brain MRI 12/25/2021 FINDINGS: CT head: There is no acute intracranial hemorrhage or evidence of acute territorial infarction. No shift of the midline structures, mass effect, or extra-axial abnormalities are shown. There is biapical scarring and an azygos fissure is noted. Tiny hypodense thyroid nodule is seen. CTA Neck: A 3 vessel aortic arch is shown. There is no significant atherosclerotic plaque in the aortic arch or the origins of the innominate, left common carotid, and left subclavian arteries. The common carotid, external carotid, cervical segments of the internal carotid arteries, and the cervical segments of the vertebral arteries are patent without hemodynamically significant stenosis. The vertebral arteries are codominant. CTA Head: The anterior and posterior cerebral circulations are patent. No hemodynamically significant stenosis, aneurysm, dissection, or arteriovenous malformation is shown. origin of the left posterior cerebral artery is seen. IMPRESSION: 1. No acute intracranial hemorrhage, evidence of acute territorial infarction, or other acute intracranial disease process. 2. No occlusion, hemodynamically significant stenosis, or dissection in the major cervical arteries. 3. No occlusion, hemodynamically significant stenosis, aneurysm, dissection, or arteriovenous malformation in the major intracranial arteries. Assessment of stenosis of the internal carotid arteries is based on NASCET criteria. ACT 112: Negative or not required by law. Electronically signed by: Eric Mcrae M.D. 04/12/2022 9:53 PM Neck CTA 04/12/22 21:22 CT angio neck with con, CT head/brain wo con, CT angio head w con CLINICAL HISTORY: stroke TECHNIQUE: Contiguous axial CT images of the head were acquired from the base of the skull to the vertex without intravenous contrast administration. CT angiography of the head and neck was performed following intravenous administration of iodinated contrast. Coronal and sagittal MIPS were obtained from the axial data set and were submitted for review. Automated dose lowering techniques and/or adjustment according to patient size were utilized for this examination. All measurements were calculated based on NASCET criteria. CT DOSE: 1323.91 mGy.cm Comparison: Comparison is made to brain MRI 12/25/2021 FINDINGS: CT head: There is no acute intracranial hemorrhage or evidence of acute territorial infarction. No shift of the midline structures, mass effect, or extra-axial abnormalities are shown. There is biapical scarring and an azygos fissure is noted. Tiny hypodense thyroid nodule is seen. CTA Neck: A 3 vessel aortic arch is shown. There is no significant atherosclerotic plaque in the aortic arch or the origins of the innominate, left common carotid, and left subclavian arteries. The common carotid, external carotid, cervical segments of the internal carotid arteries, and the cervical segments of the vertebral arteries are patent without hemodynamically significant stenosis. The vertebral arteries are codominant. CTA Head: The anterior and posterior cerebral circulations are patent. No hemodynamically significant stenosis, aneurysm, dissection, or arteriovenous malformation is shown. origin of the left posterior cerebral artery is seen. IMPRESSION: 1. No acute intracranial hemorrhage, evidence of acute territorial infarction, or other acute intracranial disease process. 2. No occlusion, hemodynamically significant stenosis, or dissection in the major cervical arteries. 3. No occlusion, hemodynamically significant stenosis, aneurysm, dissection, or arteriovenous malformation in the major intracranial arteries. Assessment of stenosis of the internal carotid arteries is based on NASCET criteria. ACT 112: Negative or not required by law. Electronically signed by: Eric Mcrae M.D. 04/12/2022 9:[address] 04/12/22 21:25 CT angio neck with con, CT head/brain wo con, CT angio head w con CLINICAL HISTORY: stroke TECHNIQUE: Contiguous axial CT images of the head were acquired from the base of the skull to the vertex without intravenous contrast administration. CT angiography of the head and neck was performed following intravenous administration of iodinated contrast. Coronal and sagittal MIPS were obtained from the axial data set and were submitted for review. Automated dose lowering techniques and/or adjustment according to patient size were utilized for this examination. All measurements were calculated based on NASCET criteria. CT DOSE: 1323.91 mGy.cm Comparison: Comparison is made to brain MRI 12/25/2021 FINDINGS: CT head: There is no acute intracranial hemorrhage or evidence of acute territorial infarction. No shift of the midline structures, mass effect, or extra-axial abnormalities are shown. There is biapical scarring and an azygos fissure is noted. Tiny hypodense thyroid nodule is seen. CTA Neck: A 3 vessel aortic arch is shown. There is no significant atherosclerotic plaque in the aortic arch or the origins of the innominate, left common carotid, and left subclavian arteries. The common carotid, external car otid, cervical segments of the internal carotid arteries, and the cervical segments of the vertebral arteries are patent without hemodynamically significant stenosis. The vertebral arteries are codominant. CTA Head: The anterior and posterior cerebral circulations are patent. No hemodynamically significant stenosis, aneurysm, dissection, or arteriovenous malformation is shown. origin of the left posterior cerebral artery is seen. IMPRESSION: 1. No acute intracranial hemorrhage, evidence of acute territorial infarction, or other acute intracranial disease process. 2. No occlusion, hemodynamically significant stenosis, or dissection in the major cervical arteries. 3. No occlusion, hemodynamically significant stenosis, aneurysm, dissection, or arteriovenous malformation in the major intracranial arteries. Assessment of stenosis of the internal carotid arteries is based on NASCET criteria. ACT 112: Negative or not required by law. Electronically signed by: Eric Mcrae M.D. 04/12/2022 9:53 PM Code Status & VTE Plan Code Status Full code VTE Prophylaxis Plan VTE Prophylaxis will be ordered: Yes PG Care Time/CCT Total # of Minutes Spent Total Time Spent with Patient: Total time spent is greater than 50% in coordination of care (as documented) at patient's floor/unit and/or counseling patient: Coding Level of Care Code INT OBSERVATION CARE 70M LVL 3 Diagnoses Weakness R53.1 Gastroparesis K31.84 Unintentional weight loss R63.4 Raynaud's disease I73.00 Depression F33.0 Depression Type: major depressive disorder Major depression recurrence: recurrent Active/Remission status: currently active Major depression episode severity: mild Mild obstructive sleep apnea G47.33 (1) Depression Depression Type: major depressive disorder Major depression recurrence: recurrent Active/Remission status: currently active Major depression episode severity: mild Qualified Code(s): F33.0 - Major depressive disorder, recurrent, mild
[2022-04-12 23:34] LABS: Lyme Ab IgG w/WB Rflx Negative (Negative); Lyme Ab IgM w/WB Rflx Negative (Negative)
[2022-04-12 23:58] LABS: Troponin I High Sensitivity 3.3 pg/ml (0-20)
[2022-04-13] MEDS: NSS + 20MEQ KCL 20 MEQ/1,000 ML BAG IV SCH ×2 (00:30→11:46)
[2022-04-13] MEDS ORDERED: ONDANSETRON INJ 2 MG/ML 2 ML VIAL IV PRN (01:16)
[2022-04-13] MEDS ORDERED: ACETAMINOPHEN 325 MG TAB PO PRN (01:16)
[2022-04-13 01:57] LABS: Basophils # (auto) 0.04 K/uL (0-0.2); Basophils % (auto) 0.5 %; Eosinophils # (auto) 0.28 K/uL (0-0.50); Eosinophils % (auto) 3.4 %; Hematocrit (blood only) 40.1 % (40.1-51.0); Hemoglobin 13.4 g/dl (14.0-18.0); Immature Granulocytes # (auto) 0.04 K/uL (0.00-0.02); Immature Granulocytes % (auto) 0.5 %; Lymphocytes % (auto) 36.9 %; Mean Corpuscular Hemoglobin 27.9 pg (25.0-34.0); Mean Corpuscular Hgb Conc 33.4 g/dL (32.0-36.0); Mean Corpuscular Volume 83.4 fL (80.0-100.0); Mean Platelet Volume 9.6 fL (9.4-12.4); Monocytes # (auto) 0.83 K/uL (0.24-0.82); Monocytes % (auto) 10.2 %; Neutrophils # (auto) 3.95 K/uL (1.4-6.5); Neutrophils % (auto) 48.5 %; Platelet Count 189 K/uL (130-400); RDW Coefficient of Variation 12.3 % (11.5-14.5); RDW Standard Deviation 37.6 fL (36.4-46.3); Red Blood Count 4.81 M/uL (4.63-6.08); White Blood Count 8.14 K/ul (4.8-10.8)
[2022-04-13 02:20] LABS: BUN Creatinine Ratio 20.3 (10-20); Bilirubin,Total 0.4 mg/dl (0.2-1.0); Calcium 8.2 mg/dl (8.5-10.1); Creatinine Clr Calc Pharmacy 131.5 ml/min; Est GFR (Non-African American) 108.7 ml/min; Potassium 3.8 mmol/L (3.5-5.1)
[2022-04-13] MEDS ORDERED: CHOLECALCIFEROL 1,000 UNITS 25 MCG TAB PO SCH (09:00)
[2022-04-13] MEDS ORDERED: ASPIRIN 81 MG ECTAB PO SCH (09:00)
[2022-04-13] MEDS ORDERED: PANTOprazole 40 MG TAB PO SCH (09:00)
--- NOTE | 2022-04-13 09:41 | Magnetic Resonance Report ---
Brain MRI WITHOUT CONTRAST HISTORY: altered mentation TECHNIQUE: Multiplanar multisequence MRI of the brain was performed without the use of contrast. COMPARISON STUDY: Head CT 04/12/2022. FINDINGS: There are no areas of restricted diffusion to suggest acute infarction. The midline structu res are intact. The paranasal sinuses are clear. The mastoid air cells are clear. The ventricles and sulci are within normal limits for age. There is no mass, hematoma, midline shift. The major vascular flow-voids at the skull base are well maintained. There are few scattered punctate foci of T2 hyperi ntensity seen within the white matter of the bilateral frontal lobes. These are nonspecific but favor minimal microvascular ischemic change. IMPRESSION: 1. No acute infarct or intracranial hemorrhage. 2. A few scattered punctate foci of T2 hyperintensity within the white matter of the bilateral fronta l lobes. These are nonspecific but favor minimal microvascular ischemic change ACT 112: Negative or not required by law. Electronically signed by: Oseas Sanchez M.D. 04/13/2022 9:39 AM
--- NOTE | 2022-04-13 10:45 | Discharge Summary ---
Discharge Summary Date of Service April 13, 2022 Admission HPI Per Admitting Provider The patient is a 57-year-old male with a past medical history including gastroparesis, weakness, Raynaud's disease, depression, mild JONO, weight loss, GERD and ongoing assessment for connective tissue disease due to mother's history of scleroderma. The patient presents with essentially resolved symptoms as noted above. He had decreased oral intake over the past several months, and has been assessed at [facility] in [place], locally, and [facility] outpatient services. He has had a 35 pound weight loss unintentionally, since May 2021. The primary concern has been that of connective tissue disease evaluation, due to his family history of his mother having scleroderma, and he has met some of the criteria for this and other autoimmune diseases. Work-up in the emergency department this evening included a CT scan of head, and CTA of head and neck, all of which were negative. Admission Exam Per Admitting Provider The patient is awake, alert and oriented 3, well developed and well nourished, normocephalic and atraumatic, lying in bed and in no acute distress. HEENT--PERRL, EOMI, mucous membranes and oropharynx dry. Neck--supple. No JVD. No bruits. Thyroid normal, trachea midline, no adenopathy. Heart--normal S1 and S2. No murmurs, rubs or gallops. Lungs--clear bilaterally, no respiratory distress, no accessory muscle use. Abdomen--normal bowel sounds and soft. Nontender. Nondistended, no hernias or masses, no organomegaly. Extremities--no cyanosis or clubbing. No edema. There are good distal pulses b/l. Dermatologic--normal skin turgor, normal color, no abnormal lymph nodes, no rash. Neurologic--cranial nerves II through XII grossly intact. Rheumatologic--normal range of motion. Psychiatric--normal affect. Principal Dx & Hospital Course #1 = Principal Diagnosis (1) Gastroparesis: 57 yo M Hx gastroparesis, depression, Raynaud's disease presented with weakness, palpitations, and weight loss; admitted for evaluation of such. Weight loss, gastroparesis: 35 pound weight loss since May 2021. Colonoscopy and EGD Spring [address] Chest 08/2021 at [facility] negative for malignancy. CTAP 09/2021 negative for malignancy. Family history of systemic scleroderma; follows with Rheumatology and workup to date has been negative. Also follows with Dr. Dunne for unexplained weight loss. Tick-borne illness studies negative. Echo does not show endocarditis or evidence of recent CO. No other localizable source of infection. MRI Brain without evidence of stroke, malignancy, MS. GI follows in outpatient setting; did gastric emptying study which showed moderate-severe gastroparesis. Education given on low fat, low fiber diet. Frequent small meals recommended. Not on any medications that would be likely to decrease appetite. Recommend outpatient evaluation of depression as possible contributing factor to poor appetite causing weight loss. Continue Luvox. (2) Unintentional weight loss: see above (3) Weakness: 5/5 strength on exam. Sounds more like a muscle fatigue as compared to a neurologic weakness. Follows with Neurology. MRI Brain negative for MS, CVA, mass. (4) Depression: Continue Luvox. Plan Dispo: Home Discharge Exam Constitutional WD/WN, vitals as above Musculoskeletal no cyanosis or clubbing, extremities motor strength 5/5 Neurologic patellar DTR's 2+ bilat, sensation intact and PERRL, EOMI, accommodation nl, no face palsy, no dysarthria Updated Medication List Medication Instructions Recorded Confirmed Type sildenafil 100 mg tablet (Viagra) See Rx Instructions PO DAILY PRN 12/04/20 04/12/22 Rx sexual activity #30 tabs cholecalciferol (vitamin D3) 25 4,000 unit PO DAILY 10/31/21 04/12/22 History mcg (1,000 unit) capsule fluvoxamine 100 mg tablet 100 mg PO HS #90 tabs 12/26/21 04/12/22 Rx pantoprazole 40 mg tablet,delayed 40 mg PO DAILY #30 tabs 02/21/22 04/12/22 Rx release (Protonix) Hospital Stay Data Consultations 04/12/22 22:44 ED Decision to Admit Stat Diagnostic Imagining Performed 04/12/22 21:22 CT angio head w con Stat CT angio neck with con Stat 04/12/22 21:25 CT Brain [CT head/brain wo con] Stat 04/13/22 07:21 MR brain wo con Stat Discharge Instructions Given to Patient (Per Discharging Provider) You were admitted to the hospital for evaluation of weakness and palpitations. You had an echocardiogram which showed normal heart function without any valve or pumping abnormalities. You had an MRI of your brain which did not show any evidence of cancer, stroke, or MS. Your lab work and your cardiac monitoring were normal. You are feeling well on day of discharge, so you are felt safe for discharge home with the following recommendations: 1) You expressed interest in getting a second opinion from [facility] regarding your weakness. I think that it is always reasonable to get a second opinion about your health. 2) It is important to follow a "gastroparesis diet": This means a diet low in fat and fiber. It also means eating small frequent meals rather than eating 3 large meals. 3) while it is not clear what is causing your difficulty with eating and weakness, your evaluation in the hospital including imaging of your brain and heart were negative, which are of course good things and suggest that those are unlikely to be the causes for your symptoms. 4) it is especially important when 1 is feeling weak to try to incorporate exercises as much as possible. This can include dedicated physical therapy but can also include exercises at home. 5) you have a few labs that are still pending, including what is called a hypercoagulability work-up. This is an evaluation for genetic problem that cau ses thick blood. Either your primary care provider or Dr. Dunne will go over these labs with you once they are back. 6) you still have some tick lab work pending, however your Lyme test was negative, and preliminary testing for anaplasmosis and babesiosis are both negative. If these tests result positive, you will get a phone call. 7) if you are not caught up on your routine cancer screenings, especially with weight loss, that is very important. Please make sure that you speak with your primary care provider about colonoscopy for colon cancer screen and PSA for prostate cancer screening. If you have any worsening of your symptoms, or have chest pain, shortness of breath, etc., please reach out your PCP or seek out urgent evaluation at the ER. It was a pleasure taking care of you. Total Time Total Time Spent Total Time Spent (In Minutes): 40 Coding Level of Care Code 13754 OBS Care - Discharge Diagnoses Gastroparesis K31.84 Unintentional weight loss R63.4 Weakness R53.1 Depression F33.0 Depression Type: major depressive disorder Major depression recurrence: recurrent Active/Remission status: currently active Major depression episode severity: mild
--- NOTE | 2022-04-13 13:31 | XCELERA ---
[id number]
--- NOTE | 2022-04-13 13:53 | Electrocardiogram Report ---
Test Reason : Blood Pressure : / mmHG Vent. Rate : 057 BPM Atrial Rate : 057 BPM P-R Int : 166 ms QRS Dur : 092 ms QT Int : 452 ms P-R-T Axes : 063 068 060 degrees QTc Int : 439 ms Sinus bradycardia Otherwise normal ECG When compared with ECG of 06-MAY-2014 09:23, No significant change was found Confirmed by Marshal Cochran ([id number]) on 04/13/2022 1:53:14 PM Referred By: REFERRED SELF Confirmed By:Marshal Cochran
[2022-04-13] MEDS ORDERED: fluvoxaMINE MALEATE 50 MG TAB PO SCH (21:00)
[2022-04-16 23:06] LABS: Anti Cardiolipin Ab IgM 12.1 MPL-U/mL; Babesia microti DNA Not Detected (Not Detected); Ehrlichia chaff IgG Ab <1:64 (<1:64); Ehrlichia chaff IgM Ab <1:20 (<1:20)
[2022-04-17 07:50] LABS: PTT LA Screen 38 sec (<=40)
[2022-04-19 08:06] LABS: B2 Glycoprotein IgG 2.5 U/mL (<20.0); B2 Glycoprotein IgM 13.9 U/mL (<20.0)
== END 2022-04-13 17:47 | disposition home or self-care (01) ==
LOC: 2S 21:11 → ED 21:11 → SUATTDRO 23:12 → 2S 04-13 01:01